=== PATIENT | female | born 1935 | race Caucasian/White ===

== ENCOUNTER → 2017-10-14 | Outpatient (CLI) | payer MEDICARE, OTHER ==
[~2017-10-14] VITALS: Ht 167.6 cm; Wt 71.7 kg
[~2017-10-14] MED LIST: APIX5TAB OR; ATEN-60 PO; ATOR40TA52 PO; LEVO100T8 PO
[2017-10-14 12:49] LABS: Basophils # (auto) 0 uL; Basophils % (auto) 0.4 % (0.0-2.0); Eosinophils # (auto) 0.1 uL; Eosinophils % (auto) 0.8 % (0.0-7.0); Nucleated Red Blood Cells % 0.1 %
[2017-10-14 12:52] LABS: Hematocrit 45.1 % (36.0-46.0); Hemoglobin 15.1 g/dL (12.2-16.2); Lymphocytes # (auto) 3.2 uL; Mean Corpuscular Hgb Conc. 33.4 g/dL (32.0-36.0); Mean Corpuscular Volume 101.9 fL (80.0-100.0); Monocytes # (auto) 1.1 uL; Monocytes % (auto) 9.3 % (0.0-12.0); Neutrophils % (auto) 61.5 % (37.0-80.0); Platelet Count (auto) 246 10^3/uL (140-450); Red Blood Cells 4.43 10^6/uL (4.0-5.20); White Blood Cell 11.3 10^3/uL (4.4-10.8)
[2017-10-14 12:55] LABS: Partial Thromboplastin Time 29.9 sec (22.64-33.71); Prothrombin Time 10.9 sec (9.37-12.3)
[2017-10-14 13:19] LABS: Albumin 3.9 g/dL (3.4-5.0); BUN/Creatinine Ratio 15.2; Bilirubin, Total 1.3 mg/dL (0.2-1.0); Calcium 8.8 mg/dL (8.5-10.1); Potassium 4.1 mmol/L (3.5-5.1); Total Protein 7.6 g/dL (6.4-8.2)
== END | disposition home or self-care (01) ==
LOC: LAB 08:00 → EDSTATUS 10-18 13:18
PROVIDERS: ATTEND Orthopaedic Surgery
DX: S52.91XA Unspecified fracture of right forearm, initial encounter for closed fracture (principal); X58.XXXA Exposure to other specified factors, initial encounter; Y93.89 Activity, other specified; Y92.89 Other specified places as the place of occurrence of the external cause; Y99.8 Other external cause status
CPT/HCPCS: 36415; 80053; 85025; 85610; 85730

== ENCOUNTER → 2017-10-15 | Outpatient (CLI) | payer MEDICARE, OTHER | END | disposition home or self-care (01) | LOC: XYW 11:13 | PROVIDERS: ATTEND Orthopaedic Surgery | DX: Z01.810 Encounter for preprocedural cardiovascular examination (principal); I08.3 Combined rheumatic disorders of mitral, aortic and tricuspid valves; S52.591A Other fractures of lower end of right radius, initial encounter for closed fracture; X58.XXXA Exposure to other specified factors, initial encounter; Y93.89 Activity, other specified; Y92.89 Other specified places as the place of occurrence of the external cause; Y99.8 Other external cause status | CPT/HCPCS: 93306 ==

== ENCOUNTER → 2019-01-21 | Outpatient (CLI) | payer MEDICARE, OTHER ==
[2019-01-21 11:35] LABS: Basophils # (auto) 0 uL; Basophils % (auto) 0.5 % (0.0-2.0); Eosinophils # (auto) 0.1 uL; Eosinophils % (auto) 1.8 % (0.0-7.0); Lymphocytes # (auto) 2.6 uL; Monocytes # (auto) 0.6 uL; Red Cell Distribution Width 13.7 % (11.8-14.3); White Blood Cell 7.4 10^3/uL (4.4-10.8)
[2019-01-21 11:37] LABS: Hematocrit 45.8 % (36.0-46.0); Hemoglobin 15.3 g/dL (12.2-16.2); Lymphocytes % (auto) 34.6 % (10.0-50.0); Mean Corpuscular Hgb Conc. 33.4 g/dL (32.0-36.0); Mean Corpuscular Volume 101.7 fL (80.0-100.0); Monocytes % (auto) 8.6 % (0.0-12.0); Neutrophils % (auto) 54.5 % (37.0-80.0); Nucleated Red Blood Cells % 0.1 %; Platelet Count (auto) 215 10^3/uL (140-450)
[2019-01-21 12:53] LABS: Albumin 3.6 g/dL (3.4-5.0); Bilirubin, Total 0.9 mg/dL (0.2-1.0)
== END | disposition home or self-care (01) ==
LOC: LAB 10:48
PROVIDERS: ATTEND Family Medicine
DX: I48.2 Chronic atrial fibrillation (principal); E03.9 Hypothyroidism, unspecified; E78.49 Other hyperlipidemia; E55.9 Vitamin D deficiency, unspecified; E53.8 Deficiency of other specified B group vitamins
CPT/HCPCS: 36415; 80053; 80061; 82306; 82607; 84443; 85025

== ENCOUNTER 2019-12-03 11:16 | Emergency (ER) | payer BC, MEDICARE, OTHER ==
[~2019-12-03] VITALS: Ht 162.6 cm; Wt 77.1 kg
[2019-12-03] MEDS ORDERED: MORPHINE SULFATE 4 MG/ML SYR/VIAL IV PRN (14:15)
[2019-12-03 14:45] VITALS: BP 142/62
[2019-12-03] MEDS ORDERED: MORPHINE SULF INJ 2 MG/ML SYRINGE 1ML IM ONE (14:45)
== END 2019-12-03 15:15 | disposition short-term general hospital (02) ==
LOC: EDBD 11:16 → ER 11:16
DX: S32.019A Unspecified fracture of first lumbar vertebra, initial encounter for closed fracture (principal); M48.061 Spinal stenosis, lumbar region without neurogenic claudication; I10 Essential (primary) hypertension; Z86.73 Personal history of transient ischemic attack (TIA), and cerebral infarction without residual deficits; W18.39XA Other fall on same level, initial encounter; Y93.89 Activity, other specified; Y92.89 Other specified places as the place of occurrence of the external cause; Y99.8 Other external cause status
CPT/HCPCS: 72131; 99285; J2270

== ENCOUNTER 2020-02-19 19:29 | Emergency (ER) | payer MEDICARE, OTHER ==
[~2020-02-19] VITALS: Ht 167.6 cm; Wt 63.5 kg
[2020-02-19 19:42] VITALS: BP 104/70
[2020-02-19] MEDS ORDERED: BACITRACIN TOP OINT 1 UD PKG TOP ONE (20:00)
[2020-02-19] MEDS ORDERED: LIDOCAINE 1% HCL (LOCAL ANESTH.) INJ 20ML MDV ONE (20:02)
== END 2020-02-19 22:04 | disposition home or self-care (01) ==
LOC: ER 19:29
DX: S51.812A Laceration without foreign body of left forearm, initial encounter (principal); R51 Headache; I10 Essential (primary) hypertension; Z86.73 Personal history of transient ischemic attack (TIA), and cerebral infarction without residual deficits; Z79.899 Other long term (current) drug therapy; W26.8XXA Contact with other sharp object(s), not elsewhere classified, initial encounter; Y93.89 Activity, other specified; Y92.89 Other specified places as the place of occurrence of the external cause; Y99.8 Other external cause status
CPT/HCPCS: 12004; 99283; J2001

== ENCOUNTER 2020-02-22 10:32 | Emergency (ER) | payer MEDICARE, OTHER ==
[~2020-02-22] VITALS: Ht 167.6 cm; Wt 63.5 kg
[2020-02-22 13:11] VITALS: BP 122/70
== END 2020-02-22 13:22 | disposition home or self-care (01) ==
LOC: ER 10:32
DX: S60.222A Contusion of left hand, initial encounter (principal); S60.221A Contusion of right hand, initial encounter; W19.XXXA Unspecified fall, initial encounter; Y93.89 Activity, other specified; Y92.89 Other specified places as the place of occurrence of the external cause; Y99.8 Other external cause status
CPT/HCPCS: 73130

== ENCOUNTER 2020-03-03 09:58 | Emergency (ER) | payer MEDICARE, OTHER ==
[~2020-03-03] VITALS: Ht 167.6 cm; Wt 46.3 kg
[2020-03-03 10:10] VITALS: BP 127/71
== END 2020-03-03 10:53 | disposition home or self-care (01) ==
LOC: ER 09:58
DX: S51.812D Laceration without foreign body of left forearm, subsequent encounter (principal); X58.XXXD Exposure to other specified factors, subsequent encounter

== ENCOUNTER → 2020-07-26 | Outpatient (CLI) | payer MEDICARE, OTHER ==
[2020-07-26 10:53] LABS: Basophils # (auto) 0.1 10 ^3/uL (0-0.2); Eosinophils # (auto) 0.1 10 ^3/uL (0-0.8); Mean Corpuscular Hgb Conc. 33.9 g/dL (32.0-36.0); Monocytes # (auto) 0.8 10 ^3/uL (0-1.3)
[2020-07-26 10:58] LABS: Basophils % (auto) 0.6 % (0.0-2.0); Eosinophils % (auto) 1.1 % (0.0-7.0); Hematocrit 48.2 % (36.0-46.0); Hemoglobin 16.3 g/dL (12.2-16.2); Lymphocytes % (auto) 37.9 % (10.0-50.0); Mean Corpuscular Volume 103.3 fL (80.0-100.0); Monocytes % (auto) 9.5 % (0.0-12.0); Neutrophils % (auto) 50.9 % (37.0-80.0); Nucleated Red Blood Cells % 0.1 %; Platelet Count (auto) 260 10^3/uL (140-450); Red Blood Cells 4.67 10^6/uL (4.0-5.20); Red Cell Distribution Width 14.1 % (11.8-14.3); White Blood Cell 7.9 10^3/uL (4.4-10.8)
[2020-07-26 11:08] LABS: Urine Bacteria MOD /hpf (None Seen); Urine Blood Negative /uL (Negative); Urine Mucus FEW (None Seen); Urine Specific Gravity 1.014 (1.001-1.035); Urine WBC 18 /hpf (0 - 5)
[2020-07-26 11:18] LABS: Albumin 3.6 g/dL (3.4-5.0); Calcium 9.1 mg/dL (8.5-10.1); Potassium 4.1 mmol/L (3.5-5.1)
[2020-07-26 11:23] LABS: BUN/Creatinine Ratio 13.3; Bilirubin, Total 1.1 mg/dL (0.2-1.0)
== END | disposition home or self-care (01) ==
LOC: LAB 10:24
PROVIDERS: ATTEND Family Medicine
DX: E78.49 Other hyperlipidemia (principal); I10 Essential (primary) hypertension; E55.9 Vitamin D deficiency, unspecified; E03.9 Hypothyroidism, unspecified; M81.0 Age-related osteoporosis without current pathological fracture; I48.20 Chronic atrial fibrillation, unspecified; E53.8 Deficiency of other specified B group vitamins
CPT/HCPCS: 36415; 80053; 80061; 81001; 82306; 82607; 84443; 85025

== ENCOUNTER → 2021-07-11 | Outpatient (CLI) | payer MEDICARE, OTHER ==
[2021-07-11 09:24] LABS: Albumin 3.3 g/dL (3.4-5.0); Calcium 9.1 mg/dL (8.5-10.1)
[2021-07-11 09:28] LABS: BUN/Creatinine Ratio 14.5; Bilirubin, Total 1.2 mg/dL (0.2-1.0); Total Protein 6.9 g/dL (6.4-8.2)
== END | disposition home or self-care (01) ==
LOC: LAB 08:37
PROVIDERS: ATTEND Family Medicine
DX: E78.49 Other hyperlipidemia (principal); E03.9 Hypothyroidism, unspecified; Z79.899 Other long term (current) drug therapy
CPT/HCPCS: 36415; 80053; 80061; 82306; 84443

== ENCOUNTER 2021-11-29 17:52 | Inpatient (IN) | payer MEDICARE, OTHER ==
[~2021-11-29] VITALS: Ht 167.6 cm; Wt 63.6 kg
[2021-11-29] MEDS ORDERED: SODIUM CHLORIDE 0.9% 1,000 ML IV ONE (19:45)
[2021-11-29] MEDS ORDERED: HYDROmorphone HCL 2 MG/ML VL IV ONE (19:45)
[2021-11-29 20:30] LABS: Basophils # (auto) 0 10 ^3/uL (0-0.2); Basophils % (auto) 0.1 % (0.0-2.0); Eosinophils # (auto) 0 10 ^3/uL (0-0.8); Eosinophils % (auto) 0.1 % (0.0-7.0); Hematocrit 44.5 % (36.0-46.0); Hemoglobin 15.1 g/dL (12.2-16.2); Lymphocytes # (auto) 1.8 10 ^3/uL (0.4-5.4); Lymphocytes % (auto) 12.5 % (10.0-50.0); Mean Corpuscular Hemoglobin 34.3 pg (28.0-32.0); Monocytes # (auto) 0.9 10 ^3/uL (0-1.3); Monocytes % (auto) 6.3 % (0.0-12.0); Neutrophils # (auto) 11.7 10 ^3/uL (1.6-8.6); Red Cell Distribution Width 12.8 % (11.8-14.3); White Blood Cell 14.5 10^3/uL (4.4-10.8)
[2021-11-29 20:43] LABS: Potassium 4.1 mmol/L (3.5-5.1)
[2021-11-29 20:50] LABS: Albumin 3.3 g/dL (3.4-5.0); BUN/Creatinine Ratio 17.4; Bilirubin, Total 0.6 mg/dL (0.2-1.0); Calcium 8.8 mg/dL (8.5-10.1); Total Protein 6.6 g/dL (6.4-8.2)
[2021-11-29] MEDS ORDERED: MORPHINE SULFATE 4 MG/ML SYR/VIAL IV PRN (23:00)
[2021-11-29] MEDS ORDERED: SODIUM CHLORIDE 0.9% 1,000 ML IV SCH (23:00)
[2021-11-29] MEDS ORDERED: ONDANSETRON HCL 4 MG/2 ML VIAL IV PRN (23:00)
[2021-11-29] MEDS ORDERED: METOPROLOL TARTRATE 1MG/1ML-5ML VIAL IV PRN (23:15)
[2021-11-30] VITALS (7 sets, daily range): BP systolic 136–155; BP diastolic 62–74
[2021-11-30] MEDS ORDERED: INFLUENZA QUAD 2021-2022 0.5 ML SYRG IM ONE (05:15)
[2021-11-30] MEDS: LEVOTHYROXINE SODIUM 100 MCG TAB PO SCH (06:45)
[2021-11-30 06:55] LABS: Calcium 8.3 mg/dL (8.5-10.1); Potassium 4.3 mmol/L (3.5-5.1)
[2021-11-30 06:59] LABS: BUN/Creatinine Ratio 20.9; Bilirubin, Total 1.2 mg/dL (0.2-1.0); Total Protein 5.9 g/dL (6.4-8.2)
[2021-11-30 07:02] LABS: Basophils # (auto) 0 10 ^3/uL (0-0.2); Basophils % (auto) 0.3 % (0.0-2.0); Eosinophils # (auto) 0 10 ^3/uL (0-0.8); Eosinophils % (auto) 0.2 % (0.0-7.0); Hematocrit 40.4 % (36.0-46.0); Hemoglobin 13.8 g/dL (12.2-16.2); Lymphocytes # (auto) 2.8 10 ^3/uL (0.4-5.4); Lymphocytes % (auto) 21.4 % (10.0-50.0); Mean Corpuscular Hemoglobin 34.7 pg (28.0-32.0); Mean Corpuscular Volume 101.9 fL (80.0-100.0); Monocytes # (auto) 1.3 10 ^3/uL (0-1.3); Monocytes % (auto) 9.8 % (0.0-12.0); Neutrophils % (auto) 68.3 % (37.0-80.0); Nucleated Red Blood Cells % 0.2 %; Red Blood Cells 3.97 10^6/uL (4.0-5.20); White Blood Cell 13.2 10^3/uL (4.4-10.8)
[2021-11-30] MEDS: FAMOTIDINE (10MG/ML) 2ML VL IV SCH (10:13)
[2021-11-30] MEDS: ATENOLOL 25 MG TAB PO SCH (10:14)
[2021-11-30 11:21] LABS: Partial Thromboplastin Time 29.9 sec (23.6-33.0)
[2021-11-30 11:40] LABS: Free T4 (Free Thyroxine) 1.63 ng/dL (0.89-1.76)
[2021-11-30] MEDS: ACETAMINOPHEN 325 MG TAB PO PRN (12:14)
[2021-11-30] MEDS: ATORVASTATIN 20 MG TAB PO SCH (22:29)
[2021-12-01] VITALS (7 sets, daily range): BP systolic 105–150; BP diastolic 43–72
[2021-12-01 06:35] LABS: Basophils # (auto) 0 10 ^3/uL (0-0.2); Eosinophils # (auto) 0 10 ^3/uL (0-0.8); Lymphocytes # (auto) 1.9 10 ^3/uL (0.4-5.4); Monocytes # (auto) 1.3 10 ^3/uL (0-1.3); Neutrophils # (auto) 8.1 10 ^3/uL (1.6-8.6)
[2021-12-01 06:39] LABS: Basophils % (auto) 0.3 % (0.0-2.0); Eosinophils % (auto) 0.2 % (0.0-7.0); Hematocrit 38.7 % (36.0-46.0); Hemoglobin 13.7 g/dL (12.2-16.2); Mean Corpuscular Hemoglobin 35.7 pg (28.0-32.0); Mean Corpuscular Hgb Conc. 35.4 g/dL (32.0-36.0); Mean Corpuscular Volume 100.8 fL (80.0-100.0); Monocytes % (auto) 11.1 % (0.0-12.0); Neutrophils % (auto) 71.4 % (37.0-80.0); Red Blood Cells 3.84 10^6/uL (4.0-5.20); Red Cell Distribution Width 13.2 % (11.8-14.3); White Blood Cell 11.3 10^3/uL (4.4-10.8)
[2021-12-01] MEDS: LEVOTHYROXINE SODIUM 100 MCG TAB PO SCH (06:43)
[2021-12-01 07:08] LABS: Chloride 108 mmol/L (98-107); Potassium 3.8 mmol/L (3.5-5.1); Sodium 137 mmol/L (136-145)
[2021-12-01 07:15] LABS: Anion Gap 5 (5-15); BUN/Creatinine Ratio 16.4; Blood Urea Nitrogen 11 mg/dL (7-18); Calcium 8.2 mg/dL (8.5-10.1); Carbon Dioxide 24 mmol/L (21-32); GFR African American 108 mL/min; GFR Non-African American 89 mL/min; Glucose 114 mg/dL (74-106); Magnesium 2.4 mg/dL (1.6-2.6)
[2021-12-01] MEDS: FAMOTIDINE (10MG/ML) 2ML VL IV SCH (10:35)
[2021-12-01] MEDS: ATENOLOL 25 MG TAB PO SCH (10:37)
[2021-12-01] MEDS ORDERED: ceFAZolin 1GM/50ML 100 ML IV ONE (11:57)
[2021-12-01] MEDS ORDERED: BUPIVACAINE W/ EPINEPH 0.25% INJ 50ML MDV ONE (12:07)
[2021-12-01] MEDS ORDERED: KETOROLAC TROMETH 30 MG/ML 1ML VIAL ONE (12:08)
[2021-12-01] MEDS ORDERED: MIDAZOLAM HCL 2MG/2ML 2ml VIAL (1mg/ml) ONE (12:33)
[2021-12-01] MEDS ORDERED: fentaNYL CITRATE 100 MCG/2 ML VL ONE (12:33)
[2021-12-01] MEDS ORDERED: MEPERIDINE HCL (25 MG/ML) 1ML VIAL ONE (12:34)
[2021-12-01] MEDS ORDERED: DexAMETHasone SOD PHOS 10MG/1ML VIAL INJ ONE (12:51)
[2021-12-01] MEDS ORDERED: PROPOFOL 10 MG/ML 20 ML IV ONE (12:51)
[2021-12-01] MEDS ORDERED: MIDAZOLAM HCL 2MG/2ML 2ml VIAL (1mg/ml) IV PRN (13:00)
[2021-12-01] MEDS ORDERED: ePHEDrine SULFATE 50 MG/ML AMP IV PRN (13:00)
[2021-12-01] MEDS ORDERED: MORPHINE SULFATE 4 MG/ML SYR/VIAL IV PRN (13:00)
[2021-12-01] MEDS ORDERED: ONDANSETRON HCL 4 MG/2 ML VIAL IV PRN (13:00)
[2021-12-01] MEDS ORDERED: LABETALOL HCL 5 MG/ML 4ML SYRINGE IV PRN (13:00)
[2021-12-01] MEDS ORDERED: HYDROmorphone HCL 2 MG/ML VL IV PRN (13:00)
[2021-12-01] MEDS ORDERED: HYDROcodone-ACET 5/325MG TAB PO PRN (13:45)
[2021-12-01] MEDS: ceFAZolin 2 GM in D5W 5% 100 ML IV SCH ×2 (14:00→22:13)
[2021-12-01] MEDS: SODIUM CHLOR 0.9% PF (SALINE LOCK) 10ML VIAL/SYR IV SCH ×2 (14:00→22:14)
[2021-12-01] MEDS: ATORVASTATIN 20 MG TAB PO SCH (22:00)
[2021-12-01] MEDS: LACTATED RINGER'S 1,000 ML IV SCH ×2 (22:12→23:45)
[2021-12-02 04:47] VITALS: BP 107/45
[2021-12-02 05:21] LABS: Basophils # (auto) 0.1 10 ^3/uL (0-0.2); Basophils % (auto) 0.5 % (0.0-2.0); Eosinophils # (auto) 0 10 ^3/uL (0-0.8); Eosinophils % (auto) 0.1 % (0.0-7.0); Hematocrit 34.8 % (36.0-46.0); Hemoglobin 12.2 g/dL (12.2-16.2); Lymphocytes # (auto) 1.8 10 ^3/uL (0.4-5.4); Lymphocytes % (auto) 17.9 % (10.0-50.0); Mean Corpuscular Hemoglobin 35.5 pg (28.0-32.0); Mean Corpuscular Hgb Conc. 35.1 g/dL (32.0-36.0); Mean Corpuscular Volume 100.9 fL (80.0-100.0); Monocytes # (auto) 1.3 10 ^3/uL (0-1.3); Monocytes % (auto) 12.6 % (0.0-12.0); Neutrophils # (auto) 6.9 10 ^3/uL (1.6-8.6); Neutrophils % (auto) 68.9 % (37.0-80.0); Red Blood Cells 3.45 10^6/uL (4.0-5.20); Red Cell Distribution Width 12.8 % (11.8-14.3)
[2021-12-02 05:40] LABS: BUN/Creatinine Ratio 14.1; Potassium 3.8 mmol/L (3.5-5.1)
[2021-12-02] MEDS: SODIUM CHLOR 0.9% PF (SALINE LOCK) 10ML VIAL/SYR IV SCH ×3 (06:49→22:00)
[2021-12-02] MEDS: LEVOTHYROXINE SODIUM 100 MCG TAB PO SCH (06:49)
[2021-12-02 08:00] VITALS: BP 110/53
[2021-12-02 09:00] VITALS: BP 110/53
[2021-12-02] MEDS: LACTATED RINGER'S 1,000 ML IV SCH ×2 (09:45→19:45)
[2021-12-02] MEDS: ACETAMINOPHEN 325 MG TAB PO PRN (09:46)
[2021-12-02] MEDS: APIXABAN 2.5 MG TAB PO SCH ×2 (10:00→22:00)
[2021-12-02] MEDS: FAMOTIDINE (10MG/ML) 2ML VL IV SCH (10:00)
[2021-12-02] MEDS: ATENOLOL 25 MG TAB PO SCH (10:00)
[2021-12-02 13:00] VITALS: BP 69/41
[2021-12-02 16:50] VITALS: BP 93/53
[2021-12-02 22:00] VITALS: BP 108/50
[2021-12-02] MEDS: ATORVASTATIN 20 MG TAB PO SCH (22:00)
[2021-12-03 04:29] VITALS: BP 95/61
[2021-12-03] MEDS: LACTATED RINGER'S 1,000 ML IV SCH ×2 (05:45→15:45)
[2021-12-03] MEDS: SODIUM CHLOR 0.9% PF (SALINE LOCK) 10ML VIAL/SYR IV SCH ×3 (05:59→22:54)
[2021-12-03] MEDS: LEVOTHYROXINE SODIUM 100 MCG TAB PO SCH (06:18)
[2021-12-03 08:00] VITALS: BP 105/56
[2021-12-03 08:40] VITALS: BP 98/45
[2021-12-03] MEDS: APIXABAN 2.5 MG TAB PO SCH ×2 (09:39→22:54)
[2021-12-03] MEDS: FAMOTIDINE (10MG/ML) 2ML VL IV SCH (09:39)
[2021-12-03] MEDS: ATENOLOL 25 MG TAB PO SCH (09:40)
[2021-12-03 12:36] VITALS: BP 105/56
[2021-12-03 17:00] VITALS: BP 113/48
[2021-12-03 22:00] VITALS: BP 100/53
[2021-12-03] MEDS: ATORVASTATIN 20 MG TAB PO SCH (22:54)
[2021-12-04] MEDS: LACTATED RINGER'S 1,000 ML IV SCH ×2 (02:05→11:45)
[2021-12-04 05:00] VITALS: BP 108/54
[2021-12-04] MEDS: SODIUM CHLOR 0.9% PF (SALINE LOCK) 10ML VIAL/SYR IV SCH ×2 (06:07→09:38)
[2021-12-04] MEDS: LEVOTHYROXINE SODIUM 100 MCG TAB PO SCH (06:46)
[2021-12-04 08:00] VITALS: BP 111/49
[2021-12-04 09:00] VITALS: BP 111/49
[2021-12-04] MEDS: APIXABAN 2.5 MG TAB PO SCH (09:38)
[2021-12-04] MEDS: FAMOTIDINE (10MG/ML) 2ML VL IV SCH (09:38)
[2021-12-04] MEDS: ATENOLOL 25 MG TAB PO SCH (09:39)
[2021-12-04 13:25] VITALS: BP 105/48
[2021-12-04 16:58] VITALS: BP 105/48
== END 2021-12-04 18:20 | DRG 481 ==
LOC: EDBD 17:52 → ER 18:05 → OVERFLOW 22:49 → CENTRAL 23:50
PROVIDERS: ADMIT Internal Medicine; ATTEND Internal Medicine
PROC: 3E02340 Introduction of Influenza Vaccine into Muscle, Percutaneous Approach (ICD-10-PCS; 2021-11-30)
PROC: BQ101ZZ Fluoroscopy of Right Hip using Low Osmolar Contrast (ICD-10-PCS; 2021-12-01)
PROC: 0QS636Z Reposition Right Upper Femur with Intramedullary Internal Fixation Device, Percutaneous Approach (ICD-10-PCS; principal; 2021-12-01 12:26)
DX: S72.141A Displaced intertrochanteric fracture of right femur, initial encounter for closed fracture (principal); I48.20 Chronic atrial fibrillation, unspecified; D68.69 Other thrombophilia; E03.9 Hypothyroidism, unspecified; I10 Essential (primary) hypertension; E78.5 Hyperlipidemia, unspecified; I27.20 Pulmonary hypertension, unspecified; M16.0 Bilateral primary osteoarthritis of hip; M81.0 Age-related osteoporosis without current pathological fracture; Z66 Do not resuscitate; Z60.2 Problems related to living alone; D72.829 Elevated white blood cell count, unspecified; Z20.822 Contact with and (suspected) exposure to COVID-19; Y93.01 Activity, walking, marching and hiking; W01.0XXA Fall on same level from slipping, tripping and stumbling without subsequent striking against object, initial encounter; Y92.098 Other place in other non-institutional residence as the place of occurrence of the external cause; Z79.01 Long term (current) use of anticoagulants; Z86.73 Personal history of transient ischemic attack (TIA), and cerebral infarction without residual deficits; Y99.8 Other external cause status; Z23 Encounter for immunization
CPT/HCPCS: 36415; 71045; 73502; 73562; 76000; 80048; 80053; 80320; 82306; 82607; 83036; 83735; 84439; 84443; 85025; 85610; 85730; 86850; 86900; 86901; 87040; 87426; 93005; 93306; 96361; 96374; 97110; 97116; 97163; 97530; G0378; J0690; J1100; J1885; J2250; J2704; J3490; J7060

== ENCOUNTER → 2022-03-07 | Outpatient (CLI) | payer MEDICARE, OTHER ==
[2022-03-07 10:59] LABS: Basophils # (auto) 0.1 10 ^3/uL (0-0.2); Basophils % (auto) 0.6 % (0.0-2.0); Eosinophils # (auto) 0.1 10 ^3/uL (0-0.8); Hematocrit 40.9 % (36.0-46.0); Lymphocytes # (auto) 2.9 10 ^3/uL (0.4-5.4); Lymphocytes % (auto) 33.2 % (10.0-50.0); Mean Corpuscular Hemoglobin 32.3 pg (28.0-32.0); Mean Corpuscular Hgb Conc. 34.2 g/dL (32.0-36.0); Mean Corpuscular Volume 94.4 fL (80.0-100.0); Monocytes # (auto) 0.7 10 ^3/uL (0-1.3); Neutrophils % (auto) 57.2 % (37.0-80.0); Red Blood Cells 4.33 10^6/uL (4.0-5.20); Red Cell Distribution Width 14.5 % (11.8-14.3); White Blood Cell 8.8 10^3/uL (4.4-10.8)
[2022-03-07 11:29] LABS: BUN/Creatinine Ratio 15.7; Calcium 8.8 mg/dL (8.5-10.1)
[2022-03-07 11:32] LABS: Bilirubin, Total 0.8 mg/dL (0.2-1.0); Total Protein 6.6 g/dL (6.4-8.2)
== END | disposition home or self-care (01) ==
LOC: LAB 10:41
PROVIDERS: ATTEND Student in an Organized Health Care Education/Training Program
DX: I48.91 Unspecified atrial fibrillation (principal); E03.9 Hypothyroidism, unspecified; E78.5 Hyperlipidemia, unspecified; M81.0 Age-related osteoporosis without current pathological fracture; Z86.73 Personal history of transient ischemic attack (TIA), and cerebral infarction without residual deficits
CPT/HCPCS: 36415; 80053; 80061; 82306; 84439; 84443; 85025

== ENCOUNTER → 2023-04-08 | Outpatient (CLI) | payer MEDICARE, BC ==
[2023-04-08 11:12] LABS: Basophils # (auto) 0.1 10 ^3/uL (0-0.2); Eosinophils # (auto) 0.1 10 ^3/uL (0-0.8); Eosinophils % (auto) 1.1 % (0.0-7.0); Hematocrit 45.4 % (36.0-46.0); Hemoglobin 15.1 g/dL (12.2-16.2); Lymphocytes # (auto) 3.2 10 ^3/uL (0.4-5.4); Mean Corpuscular Hemoglobin 32.7 pg (28.0-32.0); Mean Corpuscular Hgb Conc. 33.3 g/dL (32.0-36.0); Mean Corpuscular Volume 98.1 fL (80.0-100.0); Monocytes # (auto) 0.8 10 ^3/uL (0-1.3); Monocytes % (auto) 8.9 % (0.0-12.0); Neutrophils # (auto) 4.9 10 ^3/uL (1.6-8.6); Red Blood Cells 4.63 10^6/uL (4.0-5.20); Red Cell Distribution Width 13.9 % (11.8-14.3); White Blood Cell 9.1 10^3/uL (4.4-10.8)
[2023-04-08 11:58] LABS: Albumin 3.1 g/dL (3.4-5.0); Calcium 8.6 mg/dL (8.5-10.1); Potassium 4.2 mmol/L (3.5-5.1)
[2023-04-08 12:02] LABS: BUN/Creatinine Ratio 15.3 (10.0-20.0); Bilirubin, Total 1.2 mg/dL (0.2-1.0); Total Protein 6.5 g/dL (6.4-8.2)
== END | disposition home or self-care (01) ==
LOC: LAB 10:41
PROVIDERS: ATTEND Student in an Organized Health Care Education/Training Program
DX: E78.49 Other hyperlipidemia (principal); I27.20 Pulmonary hypertension, unspecified
CPT/HCPCS: 36415; 80053; 85025

== ENCOUNTER → 2024-02-11 | Outpatient (CLI) | payer OTHER ==
[2024-02-11 10:51] LABS: Basophils # (auto) 0.1 10 ^3/uL (0-0.2); Basophils % (auto) 0.5 % (0.0-2.0); Eosinophils # (auto) 0.1 10 ^3/uL (0-0.8); Eosinophils % (auto) 0.7 % (0.0-7.0); Hematocrit 48.9 % (36.0-46.0); Lymphocytes # (auto) 2.4 10 ^3/uL (0.4-5.4); Lymphocytes % (auto) 24.1 % (10.0-50.0); Mean Corpuscular Hemoglobin 31.5 pg (28.0-32.0); Mean Corpuscular Hgb Conc. 32.7 g/dL (32.0-36.0); Mean Corpuscular Volume 96.2 fL (80.0-100.0); Monocytes # (auto) 0.7 10 ^3/uL (0-1.3); Monocytes % (auto) 6.9 % (0.0-12.0); Neutrophils # (auto) 6.7 10 ^3/uL (1.6-8.6); Neutrophils % (auto) 67.8 % (37.0-80.0); Red Blood Cells 5.08 10^6/uL (4.0-5.20); Red Cell Distribution Width 14.5 % (11.8-14.3); White Blood Cell 9.9 10^3/uL (4.4-10.8)
[2024-02-11 12:14] LABS: Alanine Aminotransferase 10 U/L (7-40); Albumin 4.1 g/dL (3.2-4.8); Alkaline Phosphatase 128 U/L (46-116); Anion Gap 7 (5-15); Aspartate Aminotransferase 18 U/L (13-40); BUN/Creatinine Ratio 10.1 (10.0-20.0); Blood Urea Nitrogen 9 mg/dL (9-23); Calcium 9.7 mg/dL (8.5-10.1); Carbon Dioxide 28 mmol/L (20-30); Chloride 105 mmol/L (98-107); Cholesterol 130 mg/dL (< 200); Glucose 96 mg/dL (74-106); HDL Cholesterol 44 mg/dL (40-59); LDL Cholesterol 66 mg/dL (< 100); Potassium 4.1 mmol/L (3.5-5.1); Sodium 140 mmol/L (136-145); Triglycerides 98 mg/dL (< 150)
[2024-02-11 12:15] LABS: Bilirubin, Total 1.3 mg/dL (0.2-1.0); Total Protein 6.9 g/dL (5.7-8.2)
== END | disposition home or self-care (01) ==
LOC: LAB 10:35
PROVIDERS: ATTEND Student in an Organized Health Care Education/Training Program
DX: I48.20 Chronic atrial fibrillation, unspecified (principal); I27.20 Pulmonary hypertension, unspecified; I10 Essential (primary) hypertension; E78.49 Other hyperlipidemia; E03.9 Hypothyroidism, unspecified
CPT/HCPCS: 36415; 80053; 80061; 84443; 85025

== ENCOUNTER → 2024-12-28 | Outpatient (CLI) | payer OTHER ==
[2024-12-28 11:30] LABS: Basophils # (auto) 0 10 ^3/uL (0-0.2); Basophils % (auto) 0.6 % (0.0-2.0); Eosinophils # (auto) 0.1 10 ^3/uL (0-0.8); Eosinophils % (auto) 0.8 % (0.0-7.0); Hematocrit 47.1 % (36.0-46.0); Hemoglobin 15.9 g/dL (12.2-16.2); Lymphocytes # (auto) 2.5 10 ^3/uL (0.4-5.4); Lymphocytes % (auto) 32.8 % (10.0-50.0); Mean Corpuscular Hemoglobin 32.1 pg (28.0-32.0); Mean Corpuscular Hgb Conc. 33.9 g/dL (32.0-36.0); Mean Corpuscular Volume 94.9 fL (80.0-100.0); Monocytes # (auto) 0.6 10 ^3/uL (0-1.3); Monocytes % (auto) 8.1 % (0.0-12.0); Neutrophils # (auto) 4.5 10 ^3/uL (1.6-8.6); Neutrophils % (auto) 57.7 % (37.0-80.0); Nucleated Red Blood Cells % 0.1 %; Platelet Count (auto) 210 10^3/uL (140-450); Red Blood Cells 4.96 10^6/uL (4.0-5.20); White Blood Cell 7.7 10^3/uL (4.4-10.8)
[2024-12-28 11:50] LABS: Anion Gap 8 (5-15); BUN/Creatinine Ratio 13.5 (10.0-20.0); Blood Urea Nitrogen 12 mg/dL (9-23); Calcium 9.5 mg/dL (8.7-10.4); Carbon Dioxide 30 mmol/L (20-31); Chloride 102 mmol/L (98-107); Glucose 103 mg/dL (74-106); LDL Cholesterol 56 mg/dL (< 100); Potassium 4.2 mmol/L (3.5-5.1); Sodium 140 mmol/L (136-145); Total Protein 6.9 g/dL (5.7-8.2); Triglycerides 90 mg/dL (< 150)
[2024-12-28 11:51] LABS: Albumin 4.2 g/dL (3.2-4.8); Aspartate Aminotransferase 16 U/L (13-40); Cholesterol 114 mg/dL (< 200)
[2024-12-28 11:53] LABS: Alanine Aminotransferase < 9 U/L (7-40); Alkaline Phosphatase 139 U/L (46-116); Bilirubin, Total 1.5 mg/dL (0.2-1.0); HDL Cholesterol 36 mg/dL (40-59)
== END | disposition home or self-care (01) ==
LOC: LAB 10:38
PROVIDERS: ATTEND Nurse Practitioner
DX: I10 Essential (primary) hypertension (principal); E78.5 Hyperlipidemia, unspecified
CPT/HCPCS: 36415; 80053; 80061; 84443; 85025

== ENCOUNTER 2025-05-17 16:34 | Emergency (ER) | payer OTHER ==
[~2025-05-17] VITALS: Ht 157.5 cm; Wt 56.8 kg
[2025-05-17 16:35] VITALS: BP 103/57; RESP 20; TEMP 98.9; O2SAT 95
[2025-05-17 16:43] VITALS: PULSE 87
[2025-05-17] MEDS ORDERED: SODIUM CHLORIDE 0.9% 1,000 ML IV ONE (17:30)
--- NOTE | 2025-05-17 17:38 | ED.PDOC ---
Altered Mental Status HPI Comments HPI: Diomedes 89 y.o female BIB son, presents to the ED for an evaluation of a syncopal episode associated with a fall and generalized weakness. Patient who lives alone, reports syncopal episode occurred last night and son stopped by and found her on the floor. Patient was unable to get herself up and was not close to a phone to call her son then. Patient mentions feeling weak for the past couple of days. Patient has home health aid stop by and assist her. No other symptoms reported at this time Vitals Temp: 98.9 F HR: 97 BP: 103/57 RR: 20 SPO2: 95 RA Past Medical history: AFIB, HTN, HLD, TIA, hypothyroidism. patient is on eliquis due to AFIB Past Surgical history: Right hip fracture which was replaced in 2021 - fracture resulted from a fall as well but no LOC or syncopal episode noted then Social History: Denies smoking, ETOH, and drug use. Allergies: NKA HPI: Poor Historian. REVIEW OF SYSTEMS: CONSTITUTIONAL: Denies acute: fever, diaphoresis, chills, HEAD: Denies acute: headache, photophobia Eyes: Denies acute: Double vision, vision loss, eye pain, eye discharge. EARS: Denies acute: tinnitus, hearing loss, ear discharge, ear pain, THROAT: Denies acute: sore throat, swelling, difficulty swallowing , pain with swallowing, change in voice. NECK: Denies acute: neck pain, neck swelling, stiff neck. HEART: Denies acute : chest pain, palpitations, LUNGS: Denies acute: SOB, wheezing, cough, hemoptysis ABDOMEN: Denies acute: abdominal pain, Nausea, Vomiting, diarrhea, melena , hematemesis, hematochezia SKIN: Denies acute: rash, redness, lesions, itchiness. EXTREMITIES: Denies acute: calf pain, numbness, tingling, weakness, denies pain in extremity. Denies acute: Low back pain. Neuro: Denies acute: focal neurological deficit, motor or sensory focal neurological deficit, tremors, seizure like activity, confusion, dizziness, change in mental status, loss of bowel or bladder function, cauda equina like symptoms. : Denies acute: dysuria, hematuria, flank pain, increase in urinary frequency. PSYCH: Denies acute: hallucination, suicidal ideation, homicidal ideation. FEMALE: Denies acute: abnormal vaginal bleeding, foul odor, unusual discharge. PHYSICAL EXAM: General: ----no----acute distress, awake and alert. Head: normocephalic, atraumatic. Neck: supple, trachea is midline, no swelling. Cervical spine: Palpation of the posterior midline of the cervical spine reveals no focal swelling, erythema, focal tenderness to palpation. Patient has normal range of motion. Throat: Normal phonation. Eyes:, no erythema, no purulent discharge, no proptosis, no icterus. Heart: regular rate, regular rhythm, no significant murmur appreciated. Lungs: no apparent respiratory distress, Able to speak in full sentences. No wheezing, no rhonchi, no crackles. No stridors Clear to auscultation bilaterally. Abdomen: non tender to palpation, non distended, soft, no guarding, no rebound, + bowel sounds. Neuro: Awake, Alert, oriented to name, self, situation, follows commands GCS=15. Speech is normal. Skin: no petechia, no purpura, no cyanosis, non-pale, not jaundice. Lower extremities: --trace - Pitting edema no deformity, no focal swelling, no calf TTP. Makes eye contact. moves all four extremities. Face: no apparent facial droop. No nuchal rigidity, Kernig's sign, Brudzinski's sign, no meningeal signs. ED COURSE: DISCLAIMER: This medical document was created using an electronic medical record system with voice recognition software and computerized dictation system. Although this document has been carefully reviewed, there might still be some phonetic and typographical errors. Occasional wrong-word or "sound-alike" substitutions may have occurred due to the inherent limitations of voice recognition software. T hese areas are purely typographical due to imperfections of the software programs and do not reflect any compromise in the patient's medical care. Please read the chart carefully and recognize, using context, where these substitutions have occurred. Chief Complaint: General Weakness Time Seen by MD: 17:12 Primary Care Provider: UNKNOWN Reviewed Notes: Allergies Allergies: Coded Allergies: NO KNOWN ALLERGIES (Unverified , 10/14/17) Home Meds Reported Medications Atorvastatin Calcium (ATORVASTATIN CALCIUM) 40 Mg Tab, 1 TAB PO DAILY, #30 TAB 5 Refills 10/14/17 Levothyroxine Sodium (Levothyroxine Sodium) 100 Mcg Tab, 100 MCG PO QAM for 30 Days, MCG 10/14/17 Atenolol (Atenolol) 25 Mg Tab, 25 MG PO DAILY for 30 Days, MG 10/14/17 Apixaban Base (ELIQUIS) 5 Mg Tab, 5 MG OR BID, TAB 10/14/17 Information Source: Patient Mode of Arrival: Wheelchair Past Medical History PAST MEDICAL HISTORY: HTN, TIA Surgical History: Denies all surgeries FINGERPRINT CLASSIFIER History: No Pertinent FINGERPRINT CLASSIFIER History Family History Family History: Reviewed,noncontributory to illness, No family hx of Cancer, No family hx of DM, No family hx of Heart kavita, No family hx of HTN, No family hx ofKidney kavita, No family hx of Liver kavita, No family hx of Lung kavita, No family hx of Stroke Social History Smoker: Non-Smoker Alcohol: Denies ETOH Use Drugs: Denies Drug Use Lives In: Home Was a procedure done? Was a procedure done?: No Differential Diagnosis (ALOC) Differential Diagnosis: Dehydration, Hypoglycemia X-Ray, Labs, Meds, VS Vital Signs Date Time Temp Pulse Resp B/P (MAP) Pulse Ox O2 Delivery O2 Flow Rate FiO2 05/17/25 16:43 87 05/17/25 16:35 98.9 97 20 103/57 95 98.9 Lab Test 05/17/25 17:50 Range/Units White Blood Count 8.9 4.4-10.8 10^3/uL Red Blood Count 4.70 4.0-5.20 10^6/uL Hemoglobin 15.0 12.2-16.2 g/dL Hematocrit 44.4 36.0-46.0 % Mean Corpuscular Volume 94.5 80.0-100.0 fL Mean Corpuscular Hemoglobin 31.9 28.0-32.0 pg Mean Corpuscular Hemoglobin Concent 33.7 32.0-36.0 g/dL Red Cell Distribution Width 14.5 H 11.8-14.3 % Platelet Count 187 140-450 10^3/uL Mean Platelet Volume 8.7 6.9-10.8 fL Neutrophils (%) (Auto) 70.1 37.0-80.0 % Lymphocytes (%) (Auto) 15.1 10.0-50.0 % Monocytes (%) (Auto) 14.5 H 0.0-12.0 % Eosinophils (%) (Auto) 0.0 0.0-7.0 % Basophils (%) (Auto) 0.3 0.0-2.0 % Neutrophils # (Auto) 6.2 1.6-8.6 10 ^3/uL Lymphocytes # (Auto) 1.4 0.4-5.4 10 ^3/uL Monocytes # (Auto) 1.3 0-1.3 10 ^3/uL Eosinophils # (Auto) 0 0-0.8 10 ^3/uL Basophils # (Auto) 0 0-0.2 10 ^3/uL Nucleated Red Blood Cells 0.2 % Sodium Level 138 136-145 mmol/L Potassium Level 4.3 3.5-5.1 mmol/L Chloride Level 101 98-107 mmol/L Carbon Dioxide Level 28 20-31 mmol/L Anion Gap 9 5-15 Blood Urea Nitrogen 12 9-23 mg/dL Creatinine 0.92 0.550-1.02 mg/dL Glomerular Filtration Rate Calc 60 >90 mL/min BUN/Creatinine Ratio 13.0 10.0-20.0 Serum Glucose 126 H 74-106 mg/dL Lactic Acid Level 2.0 0.4-2.0 mmol/L Calcium Level 9.3 8.7-10.4 mg/dL Magnesium Level 1.9 1.6-2.6 mg/dL Total Bilirubin 1.2 H 0.2-1.0 mg/dL Aspartate Amino Transferase (AST) 38 13-40 U/L Alanine Aminotransferase (ALT) 17 7-40 U/L Alkaline Phosphatase 106 46-116 U/L Troponin I High Sensitivity 22 </=34 ng/L B-Type Natriuretic Peptide 196.02 0-100 pg/mL Total Protein 6.6 5.7-8.2 g/dL Albumin 4.3 3.2-4.8 g/dL [facility] [id number] [place] [id number] Ph: [phone] DIAGNOSTIC IMAGING Diagnostic Imaging Report : [id number] Signed PATIENT: JOSE ALBERTO CROCKER ACCT: [id number] UNIT: [id number] : 1935 LOC: ER ROOM / BED: / AGE / SEX: 89 / F ADM STATUS: REG ER SERVICE 1721 ORDERING PHYSICIAN: KIKA RAY DO PROCEDURE(s): HWOCT - HEAD WITHOUT CONTRAST REASON: syncope and collapse ORDER NUMBER(s): [id number], ACCESSION NUMBER(s): [id number] CT brain without contrast CLINICAL INDICATION: syncope and collapse FINDINGS: The study was performed in a multidetector scanner. This study performed taking axial images from the skull base up to the vertex. Both brain and bone windows are photographed. Dose lowering techniques have been used including automated exposure control and adjustment of mA and/or KV according to patient size. Findings: Cortical sulcal markings are prominent. Extensive low-density changes in the periventricular white matter most likely due to encephalomalacia. There is enlargement of the lateral 3rd and 4th ventricles, most likely due to ex vacuo volume loss. No intraparenchymal or extra-axial hemorrhage. On bone windows no fractures. IMPRESSION: 1. Atrophy with periventricular leukoencephalopathy. 2. Ventricular enlargement most likely due to ex vacuo volume loss of the surrounding white matter. 3. No intracranial extra-axial hemorrhage Computed Tomographic Radiation Dosimetry Report: Total CTDI vol = 51 mGy Total DLP = 962 mGy-cm All CT scans at this medical facility are performed using dose modulation techniques as appropriate to a performed exam including the following : Automated exposure control was utilized; adjustment of the MA and/or KvP according to patient size; and use of iterative reconstruction technique. ATED BY: JASON ADAIR MD DICTATED DATE/TIME: 05/17/251800 SIGNED BY: JASON ADAIR MD SIGNED DATE/TIME: 05/17/251800 CC: [place] [id number] Ph: [phone] DIAGNOSTIC IMAGING Diagnostic Imaging Report : [id number] Signed PATIENT: JOSE ALBERTO CROCKER ACCT: [id number] UNIT: [id number] : 1935 LOC: ER ROOM / BED: / AGE / SEX: 89 / F ADM STATUS: REG ER SERVICE 20 ORDERING PHYSICIAN: KIKA RAY DO PROCEDURE(s): CXRP - CHEST PORTABLE REASON: syncope and collapse ORDER NUMBER(s): [id number], ACCESSION NUMBER(s): [id number] AP portable chest CLINICAL INDICATION: syncope and collapse Comparison: 11/29/2021 FINDINGS: Heart size is enlarged. The aorta is tortuous. No infiltrates or effusions. IMPRESSION: 1. No acute cardiopulmonary pathology ATED BY: JASON ADAIR MD DICTATED DATE/TIME: 05/17/251755 SIGNED BY: JASON ADAIR MD SIGNED DATE/TIME: 05/17/251755 CC: [place] [id number] Ph: [phone] DIAGNOSTIC IMAGING Diagnostic Imaging Report : [id number] Signed PATIENT: JOSE ALBERTO CROCKER ACCT: [id number] UNIT: [id number] : 1935 LOC: ER ROOM / BED: / AGE / SEX: 89 / F ADM STATUS: REG ER SERVICE 20 ORDERING PHYSICIAN: KIKA RAY DO PROCEDURE(s): HWOCT - HEAD WITHOUT CONTRAST REASON: syncope and collapse ORDER NUMBER(s): [id number], ACCESSION NUMBER(s): [id number] CT brain without contrast CLINICAL INDICATION: syncope and collapse FINDINGS: The study was performed in a multidetector scanner. This study performed taking axial images from the skull base up to the vertex. Both brain and bone windows are photographed. Dose lowering techniques have been used including automated exposure control and adjustment of mA and/or KV according to patient size. Findings: Cortical sulcal markings are prominent. Extensive low-density changes in the periventricular white matter most likely due to encephalomalacia. There is enlargement of the lateral 3rd and 4th ventricles, most likely due to ex vacuo volume loss. No intraparenchymal or extra-axial hemorrhage. On bone windows no fractures. IMPRESSION: 1. Atrophy with periventricular leukoencephalopathy. 2. Ventricular enlargement most likely due to ex vacuo volume loss of the surrounding white matter. 3. No intracranial extra-axial hemorrhage Computed Tomographic Radiation Dosimetry Report: Total CTDI vol = 51 mGy Total DLP = 962 mGy-cm All CT scans at this medical facility are performed using dose modulation techniques as appropriate to a performed exam including the following: Automated exposure control was utilized; adjustment of the MA and/or KvP according to patient size; and use of iterative reconstruction technique. ATED BY: JASON ADAIR MD DICTATED DATE/TIME: 05/17/251800 SIGNED BY: JASON ADAIR MD SIGNED DATE/TIME: 05/17/251800 CC: Time of 1ST Reevaluation: 17:20 Reevaluation 1ST: Unchanged Patient Education/Counseling: Diagnosis, Treatment Family Education/Counseling: No Family Present Departure 1 Departure Time of Disposition: 18:00 Impression: Primary Impression: Syncope and collapse Disposition: ADMITTED INPATIENT Admit to: [facility] Condition: Guarded Discharged With: Self Critical Care Note Critical Care Time?: No I personally scribed for KIKA RAY DO ([email or web address]) on 05/17/25 at 17:38. Electronically submitted by Janet Barnes ([facility]). I personally scribed for KIKA RAY DO ([email or web address]) on 05/17/25 at 18:28. Electronically submitted by Janet Barnes ([facility]). I personally scribed for KIKA RAY DO ([email or web address]) on 05/17/25 at 20:24. Electronically submitted by Janet Barnes ([facility]). KIKA RAY DO May 17, 2025 17:38
--- NOTE | 2025-05-17 17:59 | DVH ---
AP portable chest CLINICAL INDICATION: syncope and collapse Comparison: 11/29/2021 FINDINGS: Heart size is enlarged. The aorta is tortuous. No infiltrates or effusions. IMPRESSION: 1. No acute cardiopulmonary pathology
[2025-05-17 18:04] LABS: Hematocrit 44.4 % (36.0-46.0); Hemoglobin 15.0 g/dL (12.2-16.2); Mean Corpuscular Hemoglobin 31.9 pg (28.0-32.0); Mean Corpuscular Volume 94.5 fL (80.0-100.0); Nucleated Red Blood Cells % 0.2 %
--- NOTE | 2025-05-17 18:04 | DVH ---
CT brain without contrast CLINICAL INDICATION: syncope and collapse FINDINGS: The study was performed in a multidetector scanner. This study performed taking axial image s from the skull base up to the vertex. Both brain and bone windows are photographed. Dose lowering techniques have been used including automated exposure control and adjustment of mA and /or KV according to patient size. Findings: Cortical sulcal markings are prominent. Extensive low-density changes in the periventricula r white matter most likely due to encephalomalacia. There is enlargement of the lateral 3rd and 4th v entricles, most likely due to ex vacuo volume loss. No intraparenchymal or extra-axial hemorrhage. On bone windows no fractures. IMPRESSION: 1. Atrophy with periventricular leukoencephalopathy. 2. Ventricular enlargement most likely due to ex vacuo volume loss of the surrounding white matter. 3. No intracranial extra-axial hemorrhage Computed Tomographic Radiation Dosimetry Report: Total CTDI vol = 51 mGy Total DLP = 962 mGy-cm All C T scans at this medical facility are performed using dose modulation techniques as appropriate to a p erformed exam including the following: Automated exposure control was utilized; adjustment of the MA and/or KvP according to patient size; and use of iterative reconstruction technique.
[2025-05-17 18:26] LABS: Alanine Aminotransferase 17 U/L (7-40); Albumin 4.3 g/dL (3.2-4.8); Alkaline Phosphatase 106 U/L (46-116); Anion Gap 9 (5-15); BUN/Creatinine Ratio 13.0 (10.0-20.0); Blood Urea Nitrogen 12 mg/dL (9-23); Calcium 9.3 mg/dL (8.7-10.4); Carbon Dioxide 28 mmol/L (20-31); Chloride 101 mmol/L (98-107); Glucose 126 mg/dL (74-106); Magnesium 1.9 mg/dL (1.6-2.6); Potassium 4.3 mmol/L (3.5-5.1); Sodium 138 mmol/L (136-145); Total Protein 6.6 g/dL (5.7-8.2)
[2025-05-17 18:27] LABS: Bilirubin, Total 1.2 mg/dL (0.2-1.0)
--- NOTE | 2025-05-18 06:49 | ECG ---
[facility] Test Date: 2025-05-17 Test Time: 16:43:25 Pat Name: JOSE ALBERTO CROCKER Department: Room: Gender: F Order Planner: DR JAMES: 1935 Requested By: KIKA RAY Order Number: [id number] Reading MD: Measurements Intervals [place] Rate: 87 P: 0 DC: 0 QRS: 32 QRSD: 88 T: 47 QT: 355 QTc: 427 Interpretive Statements Atrial fibrillation Low voltage, precordial leads Minimal ST elevation, inferior leads Please click the below link to view image of tracing.
== END 2025-05-17 20:23 | disposition left against medical advice (07) ==
LOC: ER 16:34
DX: R55 Syncope and collapse (principal); I10 Essential (primary) hypertension; E78.5 Hyperlipidemia, unspecified; E03.9 Hypothyroidism, unspecified; I48.91 Unspecified atrial fibrillation; Z86.73 Personal history of transient ischemic attack (TIA), and cerebral infarction without residual deficits; Z79.890 Hormone replacement therapy; Z79.01 Long term (current) use of anticoagulants; Z79.899 Other long term (current) drug therapy
CPT/HCPCS: 36415; 70450; 71045; 80053; 83605; 83735; 83880; 84484; 85025; 93005